=== PATIENT | male | born 1975 | race Caucasian/White ===

== ENCOUNTER 2016-11-22 22:20 | Emergency (ER) | payer MEDICAID ==
[2016-11-22] MEDS ORDERED: Hydrogen Peroxide 3% Top Soln 240 ML Bottle ONE (22:28)
[2016-11-22] MEDS ORDERED: Sodium Chloride 0.9% 10 ML Syringe FLUSH PRN (22:38)
[2016-11-22] MEDS ORDERED: Sodium Chloride 0.9% 1,000 ML IV SCH (23:30)
[2016-11-22 23:53] VITALS: BP 151/80
[2016-11-23] MEDS ORDERED: Lidocaine 1% 20 ML MDV INJECT ONE (00:14)
[2016-11-23] MEDS ORDERED: Lidocaine 1% 20 ML MDV ONE (00:15)
[2016-11-23] MEDS ORDERED: Diphtheria,Pertussis(Acell),Tetanus Vaccine 0.5 ML SDV IM ONE (00:15)
[2016-11-23] MEDS ORDERED: Ondansetron 4 MG/2 ML SDV IVPUSH ONE (01:03)
--- NOTE | 2016-11-23 02:01 | EDM.PDOC ---
<Juan Brock - Last Filed: 11/23/16 06:23> ED HPI GENERAL MEDICAL PROBLEM - General Chief Complaint: General Stated Complaint: PSYCH EVAL [facility] Time Seen by Provider: 11/22/16 22:37 Source of Information: Reports: EMS History Limitations: Reports: Altered Mental Status - History of Present Illness INITIAL COMMENTS - FREE TEXT/NARRATIVE: This patient arrived by EMS. He presented to his mother's house where he promptly passed out and his wrists were found to be cut and bleeding. It was believed that he had overdosed. There was no history of any drugs he might have been taking. The history is [place] and the Was somehow locked up so nobody can find out what kind of medication she might of been using. The patient was noted to be in an agitated delirium so no history could be obtained from him. Later when his mental status began to normalize he stated he did not have any recollection of cutting his wrists and he denies any desire to hurt himself Treatments PATIENT ACCOUNTS MANAGER: Reports: Dressing(s) - Related Data Allergies Allergy/AdvReac Type Severity Reaction Status Date / Time No Known Allergies Allergy Verified 11/22/16 23:16 Home Meds: Home Meds Lisdexamfetamine [Vyvanse] 30 mg PO DAILY 11/22/16 [History] NK [No Known Home Meds] 11/22/16 [History] PARoxetine [Paxil CR] 25 mg PO DAILY 11/22/16 [History] Past Medical History Psychiatric History: Reports: ADHD, Anxiety, Bipolar, Depression Social & Family History - Tobacco Use Smoking Status *Q: Current Status Unknown - Caffeine Use Other Caffeine Use: unknown ED ROS GENERAL - Review of Systems Review Of Systems: Unable To Obtain ED EXAM, GENERAL - Physical Exam Exam: See Below Exam Limited By: Altered Mental Status General Appearance: Other (This patient at times appears to be agitated and a few moments later he appears to be sleeping. When examined he is in 4. restraints.) Eye Exam: Bilateral Eye: Abnormal Pupil (Pupils are both about 2 mm.), Conjunctival Injection Nose: Normal Inspection Throat/Mouth: Normal Inspection Head: Atraumatic Neck: Normal Inspection Respiratory/Chest: Lungs Clear Cardiovascular: Normal Peripheral Pulses, Regular Rate, Rhythm GI/Abdominal: Soft, Non-Tender Back Exam: Normal Inspection Extremities: Other (There are bilateral wrist lacerations. On the anterior her palmar surface of the left wrist there is a 4 cm transverse laceration. It goes down to flexor tendons but does not sever or significantly injure any tendons. There is no evidence of any nerve injury. There is a similar 3 cm laceration to the right wrist. No tendons involvement. No evidence of any nerve involvement. There is no evidence of any arterial injury to either hand. Mejia's tests were done. The patient did not seem to have any pain when lidocaine was injected so I don't think he's able to sense pain presently therefore sensory exam at this time was unreliable and that'll need to be repeated later.) Neurological: Other (At times this patient seems to be fairly alert other times she appears to be sleeping. He is very easily agitated. Obviously he is under the influence of some kind of drugs.). No: Normal Cognition Psychiatric: Other (As above) Skin Exam: Warm, Dry Course - Vital Signs Last Recorded V/S: Last Vital Signs Temp 99.0 F 11/23/16 11:58 Pulse 80 11/22/16 23:20 Resp 20 11/22/16 22:20 BP 151/80 H 11/22/16 23:20 Pulse Ox 95 11/22/16 22:20 - Orders/Labs/Meds Orders: Active Orders 24 hr Category Date Time Status EKG Documentation Completion [RC] ASDIRECTED Care 11/22/16 22:39 Active Glucose [Blood Glucose Check, Bedside] [RC] ONETIME Care 11/22/16 22:46 Inactive Vaccines to be Administered [RC] PER UNIT ROUTINE Care 11/23/16 00:15 Active Sodium Chloride 0.9% [Normal Saline] 1,000 ml Med 11/22/16 23:30 Active IV ASDIRECTED Sodium Chloride 0.9% [Saline Flush] Med 11/22/16 22:38 Active 10 ml FLUSH ASDIRECTED PRN Saline Lock Insert [OM.PC] Urgent Oth 11/22/16 22:38 Ordered EKG 12 Lead [EK] Urgent Ther 11/22/16 22:38 Ordered Medication Orders Sodium Chloride (Normal Saline) 1,000 mls @ 999 mls/hr IV ASDIRECTED [facility] Last Admin: 11/22/16 23:51 Dose: 999 mls/hr Sodium Chloride (Saline Flush) 10 ml FLUSH ASDIRECTED PRN PRN Reason: Keep Vein Open Last Admin: 11/22/16 23:03 Dose: 10 ml Labs: Laboratory Tests 11/22/16 11/22/16 11/22/16 Range/Units 22:38 22:38 22:38 WBC 8.0 (4.5-11.0) K/uL RBC 4.87 (4.30-5.90) M/uL Hgb 14.4 (12.0-15.0) g/dL Hct 41.8 (40.0-54.0) % MCV 86 (80-98) fL MCH 30 (27-31) pg MCHC 34 (32-36) % Plt Count 245 (150-400) K/uL Neut % (Auto) 66 (36-66) % Lymph % (Auto) 21 L (24-44) % [place] % (Auto) 9 H (2-6) % Eos % (Auto) 1 L (2-4) % Baso % (Auto) 2 H (0-1) % Sodium 141 (140-148) mmol/L Potassium 3.5 L (3.6-5.2) mmol/L Chloride 106 (100-108) mmol/L Carbon Dioxide 24 (21-32) mmol/L Anion Gap 14.5 H (5.0-14.0) mmol/L BUN 18 (7-18) mg/dL Creatinine 1.2 (0.8-1.3) mg/dL Est Cr Clr Drug Dosing 81.01 mL/min Estimated GFR (MDRD) > 60 (>60) Glucose 102 (74-106) mg/dL Calcium 8.3 L (8.5-10.1) mg/dL Total Bilirubin 0.4 (0.2-1.0) mg/dL AST 27 (15-37) U/L ALT 46 (12-78) U/L Alkaline Phosphatase 90 (46-116) U/L Creatine Kinase (39-308) U/L Troponin I (0.000-0.056) ng/mL Total Protein 6.8 (6.4-8.2) g/dL Albumin 3.4 (3.4-5.0) g/dL Globulin 3.4 (2.3-3.5) g/dL Albumin/Globulin Ratio 1.0 L (1.2-2.2) Salicylates 3.2 (2.0-20.0) mg/dL Urine Opiates Screen (NEGATIVE) Ur Oxycodone Screen (NEGATIVE) Urine Methadone Screen (NEGATIVE) Ur Propoxyphene Screen (NEGATIVE) Acetaminophen 0.0 L (10.0-30.0) ug/mL Ur Barbiturates Screen (NEGATIVE) Ur Tricyclics Screen (NEGATIVE) Ur Phencyclidine Scrn (NEGATIVE) Ur Amphetamine Screen (NEGATIVE) U Methamphetamines Scrn (NEGATIVE) Urine MDMA Screen (NEGATIVE) U Benzodiazepines Scrn (NEGATIVE) U Cocaine Metab Screen (NEGATIVE) U Marijuana (THC) Screen (NEGATIVE) Ethyl Alcohol mg/dL 11/22/16 11/22/16 11/22/16 Range/Units 22:38 22:44 22:45 WBC (4.5-11.0) K/uL RBC (4.30-5.90) M/uL Hgb (12.0-15.0) g/dL Hct (40.0-54.0) % MCV (80-98) fL MCH (27-31) pg MCHC (32-36) % Plt Count (150-400) K/uL Neut % (Auto) (36-66) % Lymph % (Auto) (24-44) % [place] % (Auto) (2-6) % Eos % (Auto) (2-4) % Baso % (Auto) (0-1) % Sodium (140-148) mmol/L Potassium (3.6-5.2) mmol/L Chloride (100-108) mmol/L Carbon Dioxide (21-32) mmol/L Anion Gap (5.0-14.0) mmol/L BUN (7-18) mg/dL Creatinine (0.8-1.3) mg/dL Est Cr Clr Drug Dosing mL/min Estimated GFR (MDRD) (>60) Glucose (74-106) mg/dL Calcium (8.5-10.1) mg/dL Total Bilirubin (0.2-1.0) mg/dL AST (15-37) U/L ALT (12-78) U/L Alkaline Phosphatase (46-116) U/L Creatine Kinase 348 H (39-308) U/L Troponin I < 0.017 (0.000-0.056) ng/mL Total Protein (6.4-8.2) g/dL Albumin (3.4-5.0) g/dL Globulin (2.3-3.5) g/dL Albumin/Globulin Ratio (1.2-2.2) Salicylates (2.0-20.0) mg/dL Urine Opiates Screen (NEGATIVE) Ur Oxycodone Screen (NEGATIVE) Urine Methadone Screen (NEGATIVE) Ur Propoxyphene Screen (NEGATIVE) Acetaminophen (10.0-30.0) ug/mL Ur Barbiturates Screen (NEGATIVE) Ur Tricyclics Screen (NEGATIVE) Ur Phencyclidine Scrn (NEGATIVE) Ur Amphetamine Screen (NEGATIVE) U Methamphetamines Scrn (NEGATIVE) Urine MDMA Screen (NEGATIVE) U Benzodiazepines Scrn (NEGATIVE) U Cocaine Metab Screen (NEGATIVE) U Marijuana (THC) Screen (NEGATIVE) Ethyl Alcohol < 3 mg/dL 11/23/16 Range/Units 01:08 WBC (4.5-11.0) K/uL RBC (4.30-5.90) M/uL Hgb (12.0-15.0) g/dL Hct (40.0-54.0) % MCV (80-98) fL MCH (27-31) pg MCHC (32-36) % Plt Count (150-400) K/uL Neut % (Auto) (36-66) % Lymph % (Auto) (24-44) % [place] % (Auto) (2-6) % Eos % (Auto) (2-4) % Baso % (Auto) (0-1) % Sodium (140-148) mmol/L Potassium (3.6-5.2) mmol/L Chloride (100-108) mmol/L Carbon Dioxide (21-32) mmol/L Anion Gap (5.0-14.0) mmol/L BUN (7-18) mg/dL Creatinine (0.8-1.3) mg/dL Est Cr Clr Drug Dosing mL/min Estimated GFR (MDRD) (>60) Glucose (74-106) mg/dL Calcium (8.5-10.1) mg/dL Total Bilirubin (0.2-1.0) mg/dL AST (15-37) U/L ALT (12-78) U/L Alkaline Phosphatase (46-116) U/L Creatine Kinase (39-308) U/L Troponin I (0.000-0.056) ng/mL Total Protein (6.4-8.2) g/dL Albumin (3.4-5.0) g/dL Globulin (2.3-3.5) g/dL Albumin/Globulin Ratio (1.2-2.2) Salicylates (2.0-20.0) mg/dL Urine Opiates Screen Negative (NEGATIVE) Ur Oxycodone Screen Negative (NEGATIVE) Urine Methadone Screen Negative (NEGATIVE) Ur Propoxyphene Screen Negative (NEGATIVE) Acetaminophen (10.0-30.0) ug/mL Ur Barbiturates Screen Negative (NEGATIVE) Ur Tricyclics Screen Negative (NEGATIVE) Ur Phencyclidine Scrn Negative (NEGATIVE) Ur Amphetamine Screen Positive H (NEGATIVE) U Methamphetamines Scrn Positive H (NEGATIVE) Urine MDMA Screen Negative (NEGATIVE) U Benzodiazepines Scrn Negative (NEGATIVE) U Cocaine Metab Screen Negative (NEGATIVE) U Marijuana (THC) Screen Positive H (NEGATIVE) Ethyl Alcohol mg/dL Meds: Medications Generic Name Dose Route Start Last Admin Trade Name Freq PRN Reason Stop Dose Admin Sodium Chloride 1,000 mls @ 999 mls/hr 11/22/16 23:30 11/22/16 23:51 Normal Saline IV 999 mls/hr ASDIRECTED ALEXA Administration Sodium Chloride 10 ml 11/22/16 22:38 11/22/16 23:03 Saline Flush FLUSH 10 ml ASDIRECTED PRN Administration Keep Vein Open Discontinued Medications Generic Name Dose Route Start Last Admin Trade Name Freq PRN Reason Stop Dose Admin Diphtheria/Tetanus/Acell Pertussis 0.5 ml 11/23/16 00:15 11/23/16 01:06 Adacel IM 11/23/16 00:16 0.5 ml .ONCE ONE Administration Hydrogen Peroxide Confirm 11/22/16 22:28 11/22/16 22:54 Proxacol 3% Administered 11/22/16 22:29 240 ml Dose Administration 240 ml .ROUTE .STK-MED ONE Lidocaine HCl 20 ml 11/23/16 00:14 11/23/16 01:03 Xylocaine 1% INJECT 11/23/16 00:15 20 ml ONETIME ONE Administration Lidocaine HCl Confirm 11/23/16 00:15 11/23/16 01:03 Xylocaine 1% Administered 11/23/16 00:16 Not Given Dose 20 ml .ROUTE .STK-MED ONE Lorazepam 2 mg 11/23/16 02:40 11/23/16 03:07 Ativan IVPUSH 11/23/16 02:41 2 mg ONETIME ONE Administration Ondansetron HCl 4 mg 11/23/16 01:03 11/23/16 01:10 Zofran IVPUSH 11/23/16 01:04 4 mg ONETIME ONE Administration - Re-Assessments/Exams Free Text/Narrative Re-Assessment/Exam: 11/23/16 06:30 The patient was placed in 4 point restraints. The wrists were examined and then re-bandaged. An EKG was performed which showed no evidence of ischemia. The patient's temperature was noted to be elevated which would be consistent with a sympathomimetic overdose. The traffic maintenance officer present felt that he probably was using bath salts. When the patient became more coherent he said that he had been using methamphetamine and smoking marijuana. Once the patient calmed down a little bit both wrists were sutured. Procedure laceration repair: The right wrist was injected with approximately 6 mL of 1% plain lidocaine. The surrounding areas and the wound were scrubbed with Hibiclens. The wound was then copiously irrigated with normal saline by syringe. The wound was examined closely and there was no obvious tendon involvement. There was no evidence of any vascular injury and he moves the fingers normally. He did seem to have sensation in the fingers. The wound was then closed with running 4-0 nylon. The right wrist was then injected and cleansed in similar fashion. Again there was no evidence of any tendon vascular or nerve injury. The wound was closed with running 4-0 nylon. Sterile dressings were applied to both wrists. Dr. Pacheco saw this patient and felt that we would not be able to keep him in ICU since he needed to be locked up he felt the best thing would be just to keep him down here in the emergency department until he sobered up and then get a psych consult on him. He will be passed off to the incoming ER physician at 7 AM 11/23/16 06:35 Departure - Departure Disposition: DC/Tfer to Psych Hosp/Unit 65 Clinical Impression: Suicide attempt - Discharge Information Referrals: PCP,None [Primary Care Provider] - Forms: ED Department Discharge Additional Instructions: Follow wound care instruction sheet, suture removal in 10 days <OfficerYe - Last Filed: 11/23/16 12:07> Course - Vital Signs Text/Narrative:: Took over care from Dr. Brock at 7 AM, received help from discharge planning for placement Departure - Departure Time of Disposition: 12:06 Condition: Fair - Assessment/Plan Plan: Assessment Acuity = acute Site and laterality = suicidal attempt with lacerations to both wrists status post repair complicated patient with history of cannabis and methamphetamine use Etiology = unclear etiology Manifestations = none Location of injury = home Lab values = CBC, CMP unremarkable urine drug screen positive for cannabis and methamphetamine Plan Placement was secured for him at [facility], sutures were placed with wrist bilaterally these will need to be removed in approximately 10 days, watch for signs of infection Patient was in agreement with the plan all questions were answered, they were instructed to return to the emergency department or call for worsening symptoms. This note was dictated using [employer] voice recognition software please call with any questions.
[2016-11-23] MEDS ORDERED: LORazepam 2 MG/ML MDV IVPUSH ONE (02:40)
[2016-12-04] MEDS ORDERED: Hydrogen Peroxide 3% Top Soln 240 ML Bottle TOP PRN (19:13)
== END 2016-11-23 13:50 ==
LOC: JP.ED 22:20
DX: T14.91 Suicide attempt (principal); F90.9 Attention-deficit hyperactivity disorder, unspecified type; F32.9 Major depressive disorder, single episode, unspecified; Z79.899 Other long term (current) drug therapy
CPT/HCPCS: 12002; 36415; 80053; 80305; 82550; 82962; 84484; 85025; 90715; 93005; 96361; 96374; 96375; 99284; A9270; G0480; J2060; J2405; J7040; J7050